=== PATIENT | female | born 1970 | race American Indian/Alaskan Native ===

== ENCOUNTER 2017-11-21 14:25 | Emergency (ER) | payer SELFPAY ==
[2017-11-21] MEDS ORDERED: ASPIRIN PO ONE (14:44)
[2017-11-21 15:02] LABS: Basophils # (Auto) 0.1 K/mm3 (0.0-0.1); Basophils % (Auto) 0.9 % (0.0-1.8); Eosinophils # (Auto) 0.4 K/mm3 (0.0-0.4); Eosinophils % (Auto) 3.8 % (0.0-4.3); Hematocrit 37.4 % (30.3-42.9); Hemoglobin 12.6 gm/dl (10.1-14.3); Lymphocytes # (Auto) 3.9 K/mm3 (1.2-5.4); Lymphocytes % (Auto) 40.7 % (13.4-35.0); Mean Corpuscular HGB Conc 34 % (30-34); Mean Corpuscular Volume 75 fl (79-97); Monocytes # (Auto) 0.5 K/mm3 (0.0-0.8); Monocytes % (Auto) 4.9 % (0.0-7.3); Platelet Count 269 K/mm3 (140-440); Red Blood Count 4.99 M/mm3 (3.65-5.03); Red Cell Distribution Width 17.4 % (13.2-15.2)
[2017-11-21 15:03] LABS: Mean Corpuscular Hemoglobin 25 pg (28-32)
[2017-11-21 15:22] LABS: BUN/Creatinine Ratio 18; Blood Urea Nitrogen 16 mg/dL (7-17); Calcium 9.2 mg/dL (8.4-10.2); Hemolysis Index 3
[2017-11-21 17:43] VITALS: BP 168/138
[2017-11-21] MEDS ORDERED: MOTRIN PO ONE (17:59)
--- NOTE | 2017-11-21 18:04 | Emergency Department Report ---
ED Chest Pain HPI - General Chief Complaint: Chest Pain Stated Complaint: CHEST PAIN/HIGH BLOOD PRESSURE Time Seen by Provider: 11/21/17 16:26 Source: patient, RN notes reviewed Mode of arrival: Ambulatory Limitations: No Limitations - History of Present Illness Initial Comments: This is a 46-year-old female who is not known to this provider previously. She does not have a local primary care doctor. She reports a past history of hypertension and was previously on Norvasc 10 mg. She denies DVT, pulmonary embolus risk factors, also denies cocaine and recent aspirin use. She presents to ER with a primary complaint of left-sided chest wall pain. The pain is described as sharp and prickling in nature. It does not radiate to the back, arms or neck. There is no vomiting, there is no diaphoresis. The patient denies numbness to her left arm. She endorses an achy arthritis feeling from her right bicep down to her right forearm. However this pain does not radiate the midchest down to the right arm. It has since resolved. The patient denies blurry vision. However, she endorses like she feels like her eyes are racing back and forth and that she is "tracking." However, she denies loss of vision, change in vision, as well as extremity weakness. She also denies headache to me. MD Complaint: chest pain -: Gradual Onset: during rest Pain Location: left chest Pain Radiation: none Severity scale (0 -10): 0 Quality: other Consistency: other Improves With: other Worsens With: other Context: other re: other Aspirin use within the Past 7 Days: (0) No - Related Data On Oral Contraceptives: No Previous Rx's Medication Instructions Recorded Last Taken Type Amlodipine Besylate [Norvasc] 5 mg PO QDAY #30 tablet 11/21/17 Unknown Rx Aspirin [Aspirin BABY CHEW TAB] 81 mg PO QDAY #30 tab.chew 11/21/17 Unknown Rx Allergies Allergy/AdvReac Type Severity Reaction Status Date / Time No Known Allergies Allergy Unverified 11/21/17 14:38 Heart Score - HEART Score History: Slightly suspicious EKG: Non-specific Age: < 45 Risk factors: 1-2 risk factors Troponin: < normal limit HEART Score: 2 - Critical Actions Critical Actions: 0-3 pts:0.9-1.7%risk of adverse cardiac event.Candidate for discharge ED Review of Systems ROS: Stated complaint: CHEST PAIN/HIGH BLOOD PRESSURE Other details as noted in HPI Constitutional: denies: fever, malaise Eyes: denies: vision change ENT: denies: epistaxis Respiratory: denies: cough Cardiovascular: chest pain Gastrointestinal: denies: vomiting Genitourinary: denies: dysuria Musculoskeletal: arthralgia Skin: denies: lesions Neurological: denies: weakness Psychiatric: anxiety ED Past Medical Hx - Past Medical History Hx Hypertension: Yes Hx Asthma: Yes - Surgical History Additional Surgical History: C SECTIONS / ECTOPIC PREG - Social History Smoking Status: Current Every Day Smoker Substance Use Type: None - Medications Home Medications: Home Medications Medication Instructions Recorded Confirmed Last Taken Type Amlodipine Besylate [Norvasc] 5 mg PO QDAY #30 tablet 11/21/17 Unknown Rx Aspirin [Aspirin BABY CHEW TAB] 81 mg PO QDAY #30 tab.chew 11/21/17 Unknown Rx ED Physical Exam - General Limitations: No Limitations General appearance: alert, in no apparent distress - Head Head exam: Present: atraumatic, normocephalic - Eye Eye exam: Present: normal appearance, PERRL, EOMI, other (visual acuity intact to finger counting, color perception, reading at a close distance). Absent: nystagmus - ENT ENT exam: Present: normal exam, normal orophraynx, mucous membranes moist, normal external ear exam - Neck Neck exam: Present: normal inspection, full ROM. Absent: tenderness, meningismus - Respiratory Respiratory exam: Present: normal lung sounds bilaterally, chest wall tenderness. Absent: respiratory distress - Cardiovascular Cardiovascular Exam: Present: regular rate, normal rhythm, normal heart sounds. Absent: bradycardia, tachycardia, irregular rhythm, systolic murmur, diastolic murmur, rubs, gallop - GI/Abdominal GI/Abdominal exam: Present: soft, normal bowel sounds. Absent: distended, tenderness, guarding, rebound, rigid, pulsatile mass - Extremities Exam Extremities exam: Present: normal inspection, full ROM, normal capillary refill , other (2+ pulses noted in the bilateral upper, lower extremities. Compartments soft. No long bony tenderness. The pelvis is stable.). Absent: tenderness, pedal edema, joint swelling, calf tenderness - Back Exam Back exam: Present: normal inspection, full ROM. Absent: tenderness, CVA tenderness (R), paraspinal tenderness, vertebral tenderness - Neurological Exam Neurological exam: Present: alert (visual acuity intact to finger counting, color perception, reading at a close distance), oriented X3, CN II-XII intact, normal gait (it is no pronator drift. There is a normal gait. There is normal tandem gait. He was a normal [id number]. there is negative Romberg examination), other (Extraocular movements intact. Tongue midline. No facial droop. Facial sensation intact to light touch in the V1, V2, V3 distribution bilaterally. 5 and 5 strength in 4 extremities.. Sensation is intact to light touch in 4 extremities.). Absent: motor sensory deficit - Psychiatric Psychiatric exam: Present: anxious - Skin Skin exam: Present: warm, dry, intact, normal color. Absent: rash ED Course Vital Signs 11/21/17 11/21/17 11/21/17 14:38 14:45 15:06 Temperature 98.5 F Pulse Rate 119 H Respiratory 18 Rate Blood Pressure 199/126 215/114 Blood Pressure 196/119 [Left] O2 Sat by Pulse 99 Oximetry 11/21/17 11/21/17 11/21/17 15:15 15:30 15:45 Temperature Pulse Rate 85 77 93 H Respiratory 18 23 15 Rate Blood Pressure 198/120 198/120 175/106 Blood Pressure [Left] O2 Sat by Pulse 99 99 100 Oximetry 11/21/17 11/21/17 11/21/17 16:00 16:15 16:30 Temperature Pulse Rate 80 73 81 Respiratory 15 10 L 20 Rate Blood Pressure 175/106 165/102 165/102 Blood Pressure [Left] O2 Sat by Pulse 100 99 Oximetry 11/21/17 11/21/17 11/21/17 16:45 16:49 17:00 Temperature Pulse Rate 61 Respiratory 17 Rate Blood Pressure 181/102 171/97 Blood Pressure 181/102 [Left] O2 Sat by Pulse 99 100 98 Oximetry 11/21/17 11/21/17 17:15 17:30 Temperature Pulse Rate Respiratory Rate Blood Pressure 162/90 168/138 Blood Pressure [Left] O2 Sat by Pulse 98 99 Oximetry - Reevaluation(s) Reevaluation #1: 11/21/17 18:30 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 She indicates that she is not today. MURRAY score - Murray Score Age > 65: (0) No Aspirin use within the Past 7 Days: (0) No 3 or more CAD Risk Factors: (0) No 2 or more Angina events in past 24 hrs: (0) No Known CAD with more than 50% Stenosis: (0) No Elevated Cardiac Markers: (0) No ST Deviation Greater than 0.5mm: (0) No MURRAY Score: 0 ED Medical Decision Making - Lab Data Result diagrams: 11/21/17 14:49 11/21/17 14:49 Vital Signs 11/21/17 11/21/17 11/21/17 14:38 14:45 15:06 Temperature 98.5 F Pulse Rate 119 H Respiratory 18 Rate Blood Pressure 199/126 215/114 Blood Pressure 196/119 [Left] O2 Sat by Pulse 99 Oximetry 11/21/17 11/21/17 11/21/17 15:15 15:30 15:45 Temperature Pulse Rate 85 77 93 H Respiratory 18 23 15 Rate Blood Pressure 198/120 198/120 175/106 Blood Pressure [Left] O2 Sat by Pulse 99 99 100 Oximetry 11/21/17 11/21/17 11/21/17 16:00 16:15 16:30 Temperature Pulse Rate 80 73 81 Respiratory 15 10 L 20 Rate Blood Pressure 175/106 165/102 165/102 Blood Pressure [Left] O2 Sat by Pulse 100 99 Oximetry 11/21/17 11/21/17 11/21/17 16:45 16:49 17:00 Temperature Pulse Rate 61 Respiratory 17 Rate Blood Pressure 181/102 171/97 Blood Pressure 181/102 [Left] O2 Sat by Pulse 99 100 98 Oximetry 11/21/17 11/21/17 17:15 17:30 Temperature Pulse Rate Respiratory Rate Blood Pressure 162/90 168/138 Blood Pressure [Left] O2 Sat by Pulse 98 99 Oximetry Lab Results 11/21/17 11/21/17 11/21/17 Range/Units 14:49 14:49 17:21 WBC 9.6 (4.5-11.0) K/mm3 RBC 4.99 (3.65-5.03) M/mm3 Hgb 12.6 (10.1-14.3) gm/dl Hct 37.4 (30.3-42.9) % MCV 75 L (79-97) fl MCH 25 L (28-32) pg MCHC 34 (30-34) % RDW 17.4 H (13.2-15.2) % Plt Count 269 (140-440) K/mm3 Lymph % (Auto) 40.7 H (13.4-35.0) % [place] % (Auto) 4.9 (0.0-7.3) % Eos % (Auto) 3.8 (0.0-4.3) % Baso % (Auto) 0.9 (0.0-1.8) % Lymph # 3.9 (1.2-5.4) K/mm3 [place] # 0.5 (0.0-0.8) K/mm3 Eos # 0.4 (0.0-0.4) K/mm3 Baso # 0.1 (0.0-0.1) K/mm3 Seg Neutrophils % 49.7 (40.0-70.0) % Seg Neutrophils # 4.8 (1.8-7.7) K/mm3 Sodium 140 (137-145) mmol/L Potassium 3.7 (3.6-5.0) mmol/L Chloride 102.9 (98-107) mmol/L Carbon Dioxide 23 (22-30) mmol/L Anion Gap 18 mmol/L BUN 16 (7-17) mg/dL Creatinine 0.9 (0.7-1.2) mg/dL Estimated GFR > 60 ml/min BUN/Creatinine Ratio 18 % Glucose 118 H (65-100) mg/dL Calcium 9.2 (8.4-10.2) mg/dL Troponin T < 0.010 < 0.010 (0.00-0.029) ng/mL - EKG Data -: EKG Interpreted by Me EKG shows normal: sinus rhythm, axis, intervals, QRS complexes, ST-T waves - EKG Data When compared to previous EKG there are: previous EKG unavailable 11/21/17 18:25 EKG #1 shows sinus tachycardia, 100 bpm, normal axis, normal intervals, atrial enlargement, high left ventricular voltage EKG #2 shows sinus, 66 bpm, normal axis, normal intervals, high left ventricular vault Neither EKG is consistent with a STEMI - Radiology Data Radiology results: image reviewed interpreted by me: X-ray of the chest, interpreted by me, no acute disease - Medical Decision Making Differential diagnosis, including but not limited to, costochondritis, pneumonia , pneumothorax, GERD, gastritis, acute coronary syndrome, noncompliance with antihypertensive medications, nonspecific arthralgias Assessment and plan: 46-year-old female with a primary complaint of chest wall pain. The patient has no pulmonary embolus or DVT risk factors and is low risk by well's criteria. Her tachycardia has resolved. She has reproducible chest wall pain. She felt improved after ibuprofen. She is sleeping comfortably on a stretcher and in no distress. She has equal pulses in the bilateral upper, lower extremities and an unremarkable x-ray of the chest. Therefore, aortic disease is very unlikely. She endorses nonspecific visual tracking sensation, without sensation of visual loss. She also endorses nonspecific right arm muscular discomfort. She is a normal neurologic examination. She walks a steady gait and has no cerebellar signs. Patient is at low risk for major adverse cardiac event. I had an extensive discussion with the patient regarding her options for cardiac risk stratification. Patient prefers to follow-up with her outpatient [employer] to complete evaluation and workup. I did explain to the patient that we could admit her to the hospital, but I felt that she was an appropriate candidate for outpatient evaluation and workup. Through shared decision making, the patient indicates she would like to follow-up as an outpatient with cardiology. I have refilled Her aspirin and Norvasc prescription, and she can follow up with outpatient cardiology to complete her cardiac risk stratification. Critical care attestation.: If time is entered above; I have spent that time in minutes in the direct care of this critically ill patient, excluding procedure time. ED Disposition Clinical Impression: Chest wall pain, Elevated blood pressure reading Disposition: DC-01 TO HOME OR SELFCARE Is pt being admited?: No Does the pt Need Aspirin: No Condition: Good Instructions: Chest Pain (ED) Additional Instructions: Taking medications as directed. Follow-up with a primary care doctor or [employer] [employer] within the next 3-5 days to get a cardiac stress test. Please note that blood pressure was quite elevated. Long-term complications of elevated blood pressure includes stroke, heart attack, disability, stroke, paralysis, loss of quality of life. Therefore , it is very important to follow up with outpatient cardiology as directed. Please return to the ER right away with new pain, worsened pain, migration of pain, projectile vomiting, change in mental status, confusion, inability to tolerate liquid feeds. Prescriptions: Amlodipine Besylate [Norvasc] 5 mg PO QDAY #30 tablet Aspirin [Aspirin BABY CHEW TAB] 81 mg PO QDAY #30 tab.chew Referrals: PRIMARY CARE, [Primary Care Provider] - 3-5 Days [facility] [Provider Group] - 3-[address] [facility] [Provider Group] - 3-5 Days
--- NOTE | 2017-11-21 18:34 | XRay Report ---
FINAL REPORT EXAM: XR CHEST ROUTINE 2V HISTORY: cp TECHNIQUE: Two view chest PA and lateral PRIORS: None. FINDINGS: Cardiac and mediastinal contours are unremarkable. No focal pulmonary infiltrate is identified. No pleural fluid collection seen. Pulmonary vasculature is unremarkable. IMPRESSION: Negative two-view chest
== END 2017-11-21 18:47 | disposition home or self-care (01) ==
LOC: ED 14:25
DX: R07.89 Other chest pain (principal); I10 Essential (primary) hypertension; J45.909 Unspecified asthma, uncomplicated; F17.200 Nicotine dependence, unspecified, uncomplicated
CPT/HCPCS: 36415; 71046; 80048; 84484; 85025; 93005; 93010; 99284

== ENCOUNTER 2018-05-17 11:12 | Emergency (ER) | payer SELFPAY ==
[2018-05-17 11:36] VITALS: BP 205/133
[2018-05-17] MEDS ORDERED: NORVASC PO ONE (12:55)
[2018-05-17] MEDS ORDERED: ULTRAM PO ONE (12:55)
--- NOTE | 2018-05-17 13:02 | Emergency Department Report ---
ED General Adult HPI - General Chief complaint: High BP Stated complaint: HPB Time Seen by Provider: 05/17/18 12:48 Source: patient Mode of arrival: Ambulatory Limitations: No Limitations - History of Present Illness Initial comments: Patient presents to emergency Department or from her job with a BP of 203/133. Patient states she's been out of her amlodipine for a week and a half. Patient states that she used to be on 10mg of amlodipine but when she moved to [place] she was placed on 5 mg daily which has not been helpful. She also complains of a mild headache that has been present for the last couple of days and is not the worse headache of her life. Patient has chest pain, shortness breath, abdominal pain. -: Gradual Radiation: non-radiation Severity scale (0 -10): 4 Quality: dull Consistency: constant Improves with: none Worsens with: none Associated Symptoms: denies other symptoms Treatments Prior to Arrival: none - Related Data Previous Rx's Medication Instructions Recorded Last Taken Type Amlodipine Besylate [Norvasc] 5 mg PO QDAY #30 tablet 11/21/17 Unknown Rx Aspirin [Aspirin BABY CHEW TAB] 81 mg PO QDAY #30 tab.chew 11/21/17 Unknown Rx amLODIPine [Norvasc] 10 mg PO DAILY #30 tab 05/17/18 Unknown Rx traMADol [Ultram] 50 mg PO Q6HR PRN #20 tablet 05/17/18 Unknown Rx Allergies Allergy/AdvReac Type Severity Reaction Status Date / Time No Known Allergies Allergy Unverified 11/21/17 14:38 ED Review of Systems ROS: Stated complaint: HPB Other details as noted in HPI Comment: All other systems reviewed and negative Constitutional: denies: chills, fever Eyes: denies: eye pain, eye discharge, vision change ENT: denies: ear pain, throat pain Respiratory: denies: cough, shortness of breath, wheezing Cardiovascular: denies: chest pain, palpitations Endocrine: no symptoms reported Gastrointestinal: denies: abdominal pain, nausea, diarrhea Genitourinary: denies: urgency, dysuria, discharge Musculoskeletal: denies: back pain, joint swelling, arthralgia Skin: denies: rash, lesions Neurological: denies: headache, weakness, paresthesias Psychiatric: denies: anxiety, depression Hematological/Lymphatic: denies: easy bleeding, easy bruising ED Past Medical Hx - Past Medical History Hx Hypertension: Yes Hx Asthma: Yes - Surgical History Past Surgical History?: Yes Additional Surgical History: C SECTIONS / ECTOPIC PREG - Social History Smoking Status: Current Every Day Smoker Substance Use Type: None - Medications Home Medications: Home Medications Medication Instructions Recorded Confirmed Last Taken Type Amlodipine Besylate [Norvasc] 5 mg PO QDAY #30 tablet 11/21/17 Unknown Rx Aspirin [Aspirin BABY CHEW TAB] 81 mg PO QDAY #30 tab.chew 11/21/17 Unknown Rx amLODIPine [Norvasc] 10 mg PO DAILY #30 tab 05/17/18 Unknown Rx traMADol [Ultram] 50 mg PO Q6HR PRN #20 tablet 05/17/18 Unknown Rx ED Physical Exam - General Limitations: No Limitations General appearance: alert, in no apparent distress - Head Head exam: Present: atraumatic, normocephalic - Eye Eye exam: Present: normal appearance, PERRL, EOMI - ENT ENT exam: Present: mucous membranes moist - Neck Neck exam: Present: normal inspection - Respiratory Respiratory exam: Present: normal lung sounds bilaterally. Absent: respiratory distress, wheezes, rales - Cardiovascular Cardiovascular Exam: Present: regular rate, normal rhythm. Absent: systolic murmur, diastolic murmur, rubs, gallop - GI/Abdominal GI/Abdominal exam: Present: soft, normal bowel sounds. Absent: distended, tenderness - Extremities Exam Extremities exam: Present: normal inspection - Back Exam Back exam: Present: normal inspection - Neurological Exam Neurological exam: Present: alert, oriented X3, CN II-XII intact. Absent: motor sensory deficit - Psychiatric Psychiatric exam: Present: normal affect, normal mood - Skin Skin exam: Present: warm, dry, intact, normal color. Absent: rash ED Course Vital Signs 05/17/18 11:34 Temperature 98.6 F Pulse Rate 94 H Respiratory 18 Rate Blood Pressure 205/133 O2 Sat by Pulse 100 Oximetry ED Medical Decision Making - Medical Decision Making Patient politely declined further workup Critical care attestation.: If time is entered above; I have spent that time in minutes in the direct care of this critically ill patient, excluding procedure time. ED Disposition Clinical Impression: Hypertension Disposition: DC-01 TO HOME OR SELFCARE Is pt being admited?: No Does the pt Need Aspirin: No Condition: Stable Instructions: Hypertension (ED) Additional Instructions: return if worse Prescriptions: amLODIPine [Norvasc] 10 mg PO DAILY #30 tab traMADol [Ultram] 50 mg PO Q6HR PRN #20 tablet PRN Reason: Pain Referrals: ROMERO SHERIFF MD [Primary Care Provider] - 3-5 Days [facility] [Provider Group] - 3-5 Days [facility] [Provider Group] - 3-5 Days [facility] [Outside] - 3-5 Days [facility] [Provider Group] - 3-5 Days Forms: Work/School Release Form(ED) Time of Disposition: 12:58
== END 2018-05-17 13:14 | disposition home or self-care (01) ==
LOC: ED 11:12
DX: I10 Essential (primary) hypertension (principal); R51 Headache; Z53.21 Procedure and treatment not carried out due to patient leaving prior to being seen by health care provider
CPT/HCPCS: 99282